=== PATIENT | female | born 1930 | race Asian ===

== ENCOUNTER 2018-03-05 13:28 | Day surgery (SDC) | payer MEDICARE, OTHER, MEDICAID ==
[~2018-03-05 13:28] MED LIST: CEFAZOLIN 2 GM/50 ML (PMX) 50 ML IVPB
[2018-03-05 14:31] LABS: ADD MAN DIFF? NO
[2018-03-05 14:34] LABS: BASOPHILS % 0.4 % (0.0-2.0); EOSINOPHILS # 0.6 10^3/ul (0.0-0.5); EOSINOPHILS % 7.9 % (0.0-7.0); LYMPHOCYTES # 1.2 10^3/ul (0.8-2.9); LYMPHOCYTES % 16.9 % (15.0-51.0); MEAN CORPUSCULAR HEMOGLOBIN 28.1 pg (29.0-33.0); MEAN CORPUSCULAR HGB CONC 32.3 g/dl (32.0-37.0); MEAN CORPUSCULAR VOLUME 87.1 fl (82.0-101.0); MEAN PLATELET VOLUME 11.5 fl (7.4-10.4); MONOCYTE # 0.7 10^3/ul (0.3-0.9); MONOCYTES % 9.6 % (0.0-11.0); NEUTROPHIL # 4.7 10^3/ul (1.6-7.5); NEUTROPHILS % 64.8 % (39.0-77.0); PLATELET COUNT 187 10^3/UL (140-415); RED BLOOD COUNT 3.56 10^6/ul (4.20-5.40); RED CELL DISTRIBUTION WIDTH 14.3 % (11.5-14.5)
[2018-03-05 14:34] LABS: WHITE BLOOD COUNT 7.3 10^3/ul (4.8-10.8)
[2018-03-05 14:53] LABS: INR 0.99; PROTIME 13.2 Sec (11.9-14.9)
[2018-03-05 14:54] LABS: PARTIAL THROMBOPLASTIN TIME 29.2 Sec (25.0-35.0)
[2018-03-05 14:55] LABS: ANION GAP 14 (8-16); CARBON DIOXIDE 27 mmol/L (21-31); CHLORIDE 112 mmol/L (97-110); GLUCOSE 97 mg/dl (70-220)
[2018-03-05 15:15] LABS: BLOOD UREA NITROGEN 17 mg/dl (7-20); CALCIUM 9.4 mg/dl (8.4-10.2); CREATININE 0.69 mg/dl (0.44-1.00); POTASSIUM 4.4 mmol/L (3.5-5.1); SODIUM 149 mmol/L (135-144)
[2018-03-05] MEDS ORDERED: FENTAnyl 50 MCG/ML VIAL ×2 (15:31→16:07)
[2018-03-05] MEDS ORDERED: MIDAZOLAM 1 MG/ML 2 ML INJ (15:31)
[2018-03-05] MEDS ORDERED: CEFAZOLIN 1 GM INJ (15:34)
[2018-03-05] MEDS ORDERED: DIPHENHYDRAMINE 50 MG INJ (15:35)
[2018-03-05] MEDS ORDERED: KETAMINE (100 MG/ML) 5 ML VIAL (15:40)
[2018-03-05] MEDS ORDERED: METOPROLOL 5 MG INJ (15:46)
[2018-03-05] MEDS ORDERED: GLYCOPYRROLATE 0.4 MG INJ (15:56)
[2018-03-05] MEDS ORDERED: OXYCODONE/ACETAMINOPHEN (5/325) TAB PO ×2 (16:00)
[2018-03-05] MEDS ORDERED: ONDANSETRON 4 MG INJ IV (16:00)
[2018-03-05] MEDS ORDERED: LABETALOL HCL 20MG INJ IV (16:00)
[2018-03-05] MEDS ORDERED: HYDROmorphONE 1 MG/5 ML IV SYRINGE IV ×2 (16:00)
[2018-03-05] MEDS ORDERED: hydrALAzine 20 MG INJ IV (16:00)
[2018-03-05] MEDS ORDERED: hydrALAzine 20 MG INJ (16:05)
[2018-03-05] MEDS: HYDROmorphONE 1 MG/5 ML IV SYRINGE IV ×3 (16:38→16:58)
== END 2018-03-05 18:45 | disposition home or self-care (01) ==
LOC: SDS 13:28
DX: I70.238 Atherosclerosis of native arteries of right leg with ulceration of other part of lower leg (principal); L97.819 Non-pressure chronic ulcer of other part of right lower leg with unspecified severity; I10 Essential (primary) hypertension; Z95.0 Presence of cardiac pacemaker
CPT/HCPCS: 11043; 71045; 80048; 85025; 85610; 85730; 87086; 93005